=== PATIENT | male | born 1995 | race African-American/Black ===

== ENCOUNTER 2020-03-24 11:46 | Emergency (ER) | payer OTHER ==
[~2020-03-24] VITALS: Ht 193 cm; Wt 111.1 kg
--- NOTE | 2020-03-24 12:07 | Emergency Department Note ---
History of Present Illnes History of Present Illness Chief Complaint: General Medicine Complaints History of Present Illness This is a 25 year old male with presenting complaint of dizziness which started this AM with ringing in his left ear . Historian: Patient Arrival Mode: Car [employer] Required: No Onset (how long ago): day(s) Radiation: non-radiation Severity: mild Onset quality: sudden Timing of current episode: constant Progression: worsening Chronicity: new Context: recent illness, recent surgery, recent immobilization, recent travel, trauma/injury, new medications, hx of DVT/PE, non-compliance w/ medications, other Relieving factors: none Exacerbating factors: none Treatments prior to arrival: none Past Medical/Family History Physician Review I have reviewed the patient's past medical and family history. Any updates have been documented here. Past Medical History Recent Fever: No Clinical Suspicion of Infectio: No New/Unexplained Change in Ment: No Past Medical History: None Past Surgical History: None Social History Smoking Cessation: Never Smoker Counseling Performed: No Alcohol Use: None Any Illegal Drug Use: No Family History Family history of heart diseas: No Other Last Tetanus: UTD Review of Systems Review of Systems Constitutional: no symptoms EENTM: other (left sided tinnitus) Cardiovascular: no symptoms Respiratory: no symptoms Gastrointestinal: no symptoms Genitourinary: no symptoms Musculoskeletal: no symptoms Neurological: other (dizziness and tinnitus) Psychological: no symptoms Endocrine: no symptoms Hematological/Lymphatic: no symptoms Review of other systems All other systems reviewed and negative. Physical Exam Related Data Allergies: Coded Allergies: No Known Allergies (Unverified , 03/24/20) Triage Vital Signs Vital Signs Date Time Temp Pulse Resp B/P (MAP) Pulse Ox O2 Delivery O2 Flow Rate FiO2 03/24/20 11:57 97.3 80 18 152/73 99 Vital signs reviewed: Yes Physical Exam CONSTITUTIONAL Constitutional: well-developed, well-nourished HENT HENT: normocephalic, atraumatic, oropharynx clear/moist, nose normal HENT L/R: left ext ear normal, right ext ear normal EYES Eyes: PERRL, conjunctivae normal NECK Neck: ROM normal PULMONARY Pulmonary: effort normal, breath sounds normal CARDIOVASCULAR Cardiovascular: regular rhythm, heart sounds normal, capillary refill normal, normal rate GASTROINTESTINAL Abdominal: soft, nontender, bowel sounds normal GENITOURINARY Genitourinary: exam deferred SKIN Skin: warm, dry MUSCULOSKELETAL Musculoskeletal: ROM normal NEUROLOGICAL Neurological: other (nystagmus horizontal beats left) PSYCHOLOGICAL Psychological: mood/affect normal, judgement normal Results Imaging Imaging results reviewed: Yes Impressions [place] [id number] Patient Name: KYLE STRANGE JR MR #: [id number] : 1995 Age/Sex: 25/M Req #: [id number] Adm Physician: Ordered by: VADIM MILLER DO Report #: [id number] Location: ER Room/Bed: Procedure: [id number] CT/CT BRAIN WO Exam Date: 03/24/20 Exam Time: 1330 REPORT STATUS: Signed CT BRAIN WO HISTORY: Vertigo COMPARISON: None. TECHNIQUE: Noncontrast axial scans were obtained from skull base to the vertex. Coronal and sagittal reconstructions obtained from the axial data. One or more of the following dose reduction techniques were used: Automated exposure control, adjustment of the mA and/or kV according to patient size, and/or utilization of iterative reconstruction technique. DISCUSSION: Scalp/Skull: There is mild, nonaggressive focal thickening of the left frontal calvarium. Brain sulci: Appropriate for patient's age. Ventricles: Normal in size and configuration. No hydrocephalus. Extra-axial spaces: Nonspecific, approximately 1.7 cm focal extra-axial, partially calcified fluid density lesion along the left superior frontal gyrus may be an arachnoid ethmoid cyst. There is minimal local mass effect. No additional masses or fluid collections. Parenchyma: No abnormal densities. No mass, hemorrhage, or large vascular territory acute infarct. Dural sinuses: No abnormal densities. Sellar/Suprasellar region: Intact. Skull base: Intact. Incidental findings: None. IMPRESSION: 1. No acute intracranial abnormalities. 2. Nonspecific, approximately 1.7 cm extra-axial fluid density lesion along the left superior frontal gyrus may be an arachnoid or dermoid cyst. There is minimal local mass effect. Further evaluation with nonemergent brain MRI is recommended. Signed by: Dr. Jigar Coates M.D. on 03/24/2020 2:04 PM Dictated By: JIGAR COATES MD 03 Transcribed By: SHAI on 03/24/201403 COPY TO: VADIM MILLER DO~ Assessment & Plan Assessment & Plan Problems: (1) Vertigo (2) Tinnitus Assessment & Plan Patient to be discharged to home with Rx Meclizine with f/u to Neurology Depart Disposition: HOME, SELF-CARE Last Vital Signs Date Time Temp Pulse Resp B/P (MAP) Pulse Ox O2 Delivery O2 Flow Rate FiO2 03/24/20 11:57 97.3 80 18 152/73 99 Medications in the ED Meclizine HCl 12.5 mg ONCE ONCE PO Last administered on 03/24/20at 12:34; Admin Dose 12.5 MG; Start 03/24/20 at 12:15; Stop 03/24/20 at 15:22; Status DC VADIM MILLER DO March 24, 2020 12:07
[2020-03-24] MEDS ORDERED: MECLIZINE HCL 12.5 MG TAB PO ONE (12:15)
--- NOTE | 2020-03-24 14:07 | Diagnostic Imaging Report ---
CT BRAIN WO HISTORY: Vertigo COMPARISON: None. TECHNIQUE: Noncontrast axial scans were obtained from skull base to the vertex. Coronal and sagittal reconstructions obtained from the axial data. One or more of the following dose reduction techniques were used: Automated exposure control, adjustment of the mA and/or kV according to patient size, and/or utilization of iterative reconstruction technique. DISCUSSION: Scalp/Skull: There is mild, nonaggressive focal thickening of the left frontal calvarium. Brain sulci: Appropriate for patient's age. Ventricles: Normal in size and configuration. No hydrocephalus. Extra-axial spaces: Nonspecific, approximately 1.7 cm focal extra-axial, partially calcified fluid density lesion along the left superior frontal gyrus may be an arachnoid ethmoid cyst. There is minimal local mass effect. No additional masses or fluid collections. Parenchyma: No abnormal densities. No mass, hemorrhage, or large vascular territory acute infarct. Dural sinuses: No abnormal densities. Sellar/Suprasellar region: Intact. Skull base: Intact. Incidental findings: None. IMPRESSION: 1. No acute intracranial abnormalities. 2. Nonspecific, approximately 1.7 cm extra-axial fluid density lesion along the left superior frontal gyrus may be an arachnoid or dermoid cyst. There is minimal local mass effect. Further evaluation with nonemergent brain MRI is recommended. Signed by: Dr. Jigar Jenkins M.D. on 03/24/2020 2:04 PM
[2020-03-24 15:20] VITALS: BP 151/85
== END 2020-03-24 15:22 | disposition home or self-care (01) ==
LOC: ER 11:46
DX: R42 Dizziness and giddiness (principal); H93.12 Tinnitus, left ear
CPT/HCPCS: 70450; 99283